=== PATIENT | female | born 1990 | race Native Hawaiian/Other Pacific Islander ===

== ENCOUNTER 2021-08-03 15:41 | Outpatient (CLI) | payer OTHER ==
--- NOTE | 2021-08-04 16:44 | MRI Report ---
PROCEDURE: Shoulder RT W/O INDICATIONS: INSTABILITY RIGHT SHOULDER TECHNIQUE: Noncontrast oblique coronal T2 fast spin echo with fat saturation, oblique sagittal T1 spin echo and T2 fast spin echo with fat saturation, axial T1 spin echo and T2 fast spin echo with fat saturation t hrough the shoulder. COMPARISON: None. FINDINGS: Image quality: Suboptimal due to motion artifacts. Rotator cuff: There is partial-thickness tear of the distal supraspinatus tendon. No tendon retractio n or supraspinous muscle atrophy. Infraspinatus and subscapularis tendons appear intact throughout. Bones and bursae: A small Hill-Sachs deformity is present. Suspect a small bony Bankart in the anter ior inferior glenoid. Mild acromioclavicular joint degeneration. The acromion demonstrates conventio nal anatomy, without an os acromiale. No pathologic subacromial/subdeltoid bursal fluid is present. Capsule and soft tissues: There is tear of the anterior inferior labrum with associated small bony B ankart lesion. In the absence of intra-articular contrast, glenohumeral ligaments appear intact. The long head of the biceps tendon demonstrates normal location and morphology. The rotator interval ap pears normal, without fibrosis. The coracohumeral ligament is normal in thickness. IMPRESSION: 1. Partial-thickness tear of the distal supraspinatus tendon. No tendon retraction or supraspinous mu scle atrophy. 2. Tear of the anterior-inferior labrum. Question of bony Bankart leason. Absence of edema in the are a suggesting chronic injury. Recommend clinical correlation. 3. A Hill-Sachs deformity of the humeral head. 4. Mild, clavicular joint degeneration. Reviewed by: Kaur Osuna MD on 08/04/2021 4:43 PM PDT Approved by: Kaur Osuna MD on 08/04/2021 4:43 PM PDT Station ID: [id number]
== END 2021-08-03 15:42 | disposition home or self-care (01) ==
LOC: DI 15:41
PROVIDERS: ATTEND Student in an Organized Health Care Education/Training Program
DX: M75.111 Incomplete rotator cuff tear or rupture of right shoulder, not specified as traumatic (principal); S43.491A Other sprain of right shoulder joint, initial encounter; M21.821 Other specified acquired deformities of right upper arm; M19.011 Primary osteoarthritis, right shoulder